=== PATIENT | female | born 1985 | race Caucasian/White ===

== ENCOUNTER 2017-02-17 13:24 | Emergency (ER) | payer OTHER ==
[2017-02-17 13:43] VITALS: TEMP 98.7; O2SAT 100
--- NOTE | 2017-02-17 14:27 | C.PDOC ---
History Of Present Illness 31 y/o female A2 presents to ED with complaints of vaginal bleeding and lower abdominal pain for 2 days. Patient reports heavy bleeding with clots 2 days ago and decreased bleeding yesterday. Patient states she went to the clinic and was told she is 4 weeks . Patient's LMP was on 01/03/17. Patient denies dizziness, fever, chills, n/v/d or any other complaints at this time. Time Seen by Provider: 02/17/17 14:14 Chief Complaint (Nursing): Female Genitourinary History Per: Patient History/Exam Limitations: no limitations Onset/Duration Of Symptoms: Days Current Symptoms Are (Timing): Still Present Past Medical History Reviewed: Historical Data, Nursing Documentation, Vital Signs Vital Signs: Last Vital Signs Temp 98.7 F 02/17/17 13:41 Pulse 84 02/17/17 13:41 Resp 17 02/17/17 13:41 BP 109/73 02/17/17 13:41 Pulse Ox 100 02/17/17 14:31 Family History: States: Unknown Family Hx - Social History Hx Tobacco Use: No Hx Alcohol Use: No Hx Substance Use: No - Immunization History Hx Tetanus Toxoid Vaccination: No Hx Influenza Vaccination: No Hx Pneumococcal Vaccination: No Review Of Systems Constitutional: Negative for: Fever, Chills Respiratory: Negative for: Shortness of Breath Gastrointestinal: Positive for: Abdominal Pain. Negative for: Nausea, Vomiting , Diarrhea Genitourinary: Positive for: Vaginal Bleeding Musculoskeletal: Negative for: Back Pain Skin: Negative for: Rash Physical Exam - Physical Exam Additional Physical Exam Comments: Constitutional: No acute distress. Head: Normocephalic. Atraumatic. Eyes: PERRL. No conjuctival Pallor ENT: Moist mucous membranes. Neck: Supple. Cardiovascular: Regular rate. Radial pulse 2+ bilaterally. Chest: No tenderness. Respiratory: Clear to auscultation bilaterally. GI: Soft. Nontender. Nondistended. Back: No CVA tenderness. Musculoskeletal: No tenderness or swelling of extremities. Skin: No rash. Extremities: Normal capillary refills Neurologic: Alert, no focal deficit. ED Course And Treatment - Laboratory Results Result Diagrams: 02/17/17 14:50 02/17/17 14:50 O2 Sat by Pulse Oximetry: 100 (RA) Pulse Ox Interpretation: Normal Medical Decision Making Medical Decision Making: HISTORY: vag bleed in , assess cervix COMPARISON: Comparison is made to the previous study dated 03/11/2016 TECHNIQUE: Transabdominal and endovaginal ultrasound examination of the pelvis FINDINGS: UTERUS: Measures 10.1 x 5 x 5.6 cm. Normal in size and appearance. No fibroid or other mass lesion seen. ENDOMETRIUM: Measures 17.7 mm in diameter. Heterogeneous. No evidence of intrauterine . CERVIX: No cervical abnormality identified. RIGHT OVARY: Measures 2 x 1.6 x 2.6 cm. No solid mass. Normal flow. LEFT OVARY: Measures 2.9 x 2 x 2.2 cm. No solid mass. Normal flow. There is a cyst seen at the left ovary measures 1.2 x 1 x 1.4 centimeter. FREE FLUID: No significant free fluid noted. OTHER FINDINGS: None. IMPRESSION: No evidence of intrauterine . The differential diagnosis includes very early versus ectopic . Correlation with beta HCG level and close follow-up reassessment is recommended. Instructed to return in 48 hours for beta hcg repeat. Immediately for pain, bleeding, syncope, vomiting, etc. Disposition - Disposition Disposition: HOME/ ROUTINE Disposition Time: 16:14 Condition: STABLE Instructions: Spontaneous Miscarriage (ED) - Clinical Impression Clinical Impression: Vaginal bleeding in - Scribe Statement The provider has reviewed the documentation as recorded by the Montrell Solis All medical record entries made by the Montrell were at my direction and personally dictated by me. I have reviewed the chart and agree that the record accurately reflects my personal performance of the history, physical exam, medical decision making, and the department course for this patient. I have also personally directed, reviewed, and agree with the discharge instructions and disposition.
[2017-02-17 14:58] LABS: BASO % 0.2 % (0.0-2.0); EOS # 0.1 K/uL (0.0-0.7); EOS % 0.7 % (0.0-4.0); HEMATOCRIT 37.8 % (34.0-47.0); LYMPH % 23.6 % (20.0-40.0); MEAN CELL VOLUME 85.9 fL (81.0-99.0); MEAN CORPUSCULAR HEMOGLOBIN 27.9 pg (27.0-31.0); MEAN CORPUSCULAR HGB CONC 32.5 g/dL (33.0-37.0); MONO # 0.5 K/uL (0.0-0.8); RED CELL DISTRIBUTION WIDTH 14.6 % (11.5-14.5); WHITE BLOOD COUNT 8.4 K/uL (4.8-10.8)
[2017-02-17 15:06] LABS: CHLORIDE 105 mmol/L (98-107); RBC URINE 24 /hpf (0-3); URINE BACTERIA OCC (<OCC); URINE BILIRUBIN NEGATIVE (NEGATIVE); URINE BLOOD 3+ (NEGATIVE); URINE COLOR Amber (YELLOW); URINE GLUCOSE (UA) NORMAL (Normal); URINE HYALINE CAST 0-2 /lpf (0-2); URINE KETONE TRACE mg/dL (NEGATIVE); URINE LEUKOCYTE ESTERASE 2+ Leu/uL (Negative); URINE PROTEIN 1+ mg/dL (NEGATIVE); URINE UROBILINOGEN NORMAL mg/dL (0.2-1.0); WBC URINE 54 /hpf (0-5)
[2017-02-17 15:07] LABS: POTASSIUM 3.6 mmol/L (3.6-5.2); SODIUM 138 mmol/L (132-148)
[2017-02-17 15:10] LABS: ALB/GLOB RATIO 1.1 (1.0-2.1); ALKALINE PHOSPHATASE 52 U/L (38-126); ALT/SGPT 21 U/L (9-52); AST/SGOT 25 U/L (14-36); BILIRUBIN,TOTAL 0.7 mg/dL (0.2-1.3); BLOOD UREA NITROGEN 11 mg/dL (7-17); CALCIUM 8.7 mg/dl (8.6-10.4); CARBON DIOXIDE 22 mmol/L (22-30); GFR AFRICAN-AMERICAN > 60; GLUCOSE,RANDOM 104 mg/dL (65-105)
[2017-02-17 16:23] VITALS: BP 104/75; PULSE 76; RESP 18
--- NOTE | 2017-02-17 16:48 | US ---
HISTORY: vag bleed in , assess cervix COMPARISON: Comparison is made to the previous study dated 03/11/2016 TECHNIQUE: Transabdominal and endovaginal ultrasound examination of the pelvis FINDINGS: UTERUS: Measures 10.1 x 5 x 5.6 cm. Normal in size and appearance. No fibroid or other mass lesion seen. ENDOMETRIUM: Measures 17.7 mm in diameter. Heterogeneous. No evidence of intrauterine . CERVIX: No cervical abnormality identified. RIGHT OVARY: Measures 2 x 1.6 x 2.6 cm. No solid mass. Normal flow. LEFT OVARY: Measures 2.9 x 2 x 2.2 cm. No solid mass. Normal flow. There is a cyst seen at the left ovary measures 1.2 x 1 x 1.4 centimeter. FREE FLUID: No significant free fluid noted. OTHER FINDINGS: None. IMPRESSION: No evidence of intrauterine . The differential diagnosis includes very early versus ectopic . Correlation with beta HCG level and close follow-up reassessment is recommended.
== END 2017-02-17 16:23 | disposition home or self-care (01) ==
LOC: C.ER 13:24
DX: O46.91 Antepartum hemorrhage, unspecified, first trimester (principal); Z3A.00 Weeks of gestation of pregnancy not specified

== ENCOUNTER 2017-02-20 17:03 | Emergency (ER) | payer SELFPAY ==
[2017-02-20 17:18] VITALS: PULSE 72; RESP 18; TEMP 98.4
--- NOTE | 2017-02-20 18:21 | C.PDOC ---
History Of Present Illness 31 y/o A2 female presents to ED for follow up on previous visit to ED on to repeat BETA count. Patient states vaginal bleeding has continued mostly when she is laying down but denies fever, abdominal pain, nausea, vomiting or any other complaints at this time. Time Seen by Provider: 02/20/17 17:22 Chief Complaint (Nursing): Medical Clearance History Per: Patient History/Exam Limitations: no limitations Onset/Duration Of Symptoms: Days Current Symptoms Are (Timing): Still Present Past Medical History Reviewed: Historical Data, Nursing Documentation, Vital Signs Vital Signs: Last Vital Signs Temp 98.4 F 02/20/17 17:15 Pulse 72 02/20/17 18:29 Resp 18 02/20/17 18:29 BP 120/71 02/20/17 18:29 Pulse Ox 100 02/20/17 18:42 Family History: States: Unknown Family Hx - Social History Hx Tobacco Use: No Hx Alcohol Use: No Hx Substance Use: No - Immunization History Hx Tetanus Toxoid Vaccination: No Hx Influenza Vaccination: No Hx Pneumococcal Vaccination: No Review Of Systems Except As Marked, All Systems Reviewed And Found Negative. Constitutional: Negative for: Fever, Chills Gastrointestinal: Negative for: Nausea, Vomiting, Abdominal Pain, Diarrhea Genitourinary: Positive for: Vaginal Bleeding. Negative for: Dysuria, Frequency Skin: Negative for: Rash Physical Exam - Physical Exam Appears: Non-toxic, No Acute Distress Skin: Normal Color, Warm Head: Atraumatic, Normacephalic Cardiovascular: Rhythm Regular, No Murmur Respiratory: Normal Breath Sounds, No Rales, No Rhonchi, No Wheezing Gastrointestinal/Abdominal: Soft, No Tenderness, No Guarding, No Rebound Extremity: Normal ROM Neurological/Psych: Oriented x3, Normal Speech, Normal Cognition ED Course And Treatment O2 Sat by Pulse Oximetry: 100 (RA) Pulse Ox Interpretation: Normal Progress Note: BETA counts less, shows signs of miscarriage. Patient discharged and instructed to follow up with OBGYN Disposition - Disposition Disposition: HOME/ ROUTINE Disposition Time: 18:19 Condition: STABLE Additional Instructions: Vaya a soto mdico o la clnica en 1-3 bragg sin falta, para mas evaluacin. Webb los medicamentos ana indicado. Volver a la joby de emergencia en cualquier momento si los sntomas persisten o empeoran. Instructions: Spontaneous Miscarriage (ED) Print Language: CZECH - Clinical Impression Clinical Impression: Spontaneous - PA / RESPIRATORY CARE ASSISTANT / Resident Statement MD/DO has reviewed & agrees with the documentation as recorded. - Scribe Statement The provider has reviewed the documentation as recorded by the Scribradha Solis All medical record entries made by the Tashaibradha were at my direction and personally dictated by me. I have reviewed the chart and agree that the record accurately reflects my personal performance of the history, physical exam, medical decision making, and the department course for this patient. I have also personally directed, reviewed, and agree with the discharge instructions and disposition.
[2017-02-20 18:30] VITALS: BP 120/71
[2017-02-20 18:40] VITALS: O2SAT 100
== END 2017-02-20 18:30 | disposition home or self-care (01) ==
LOC: C.ER 17:03
DX: O03.9 Complete or unspecified spontaneous abortion without complication (principal)